=== PATIENT | female | born 1975 | race Caucasian/White ===

== ENCOUNTER 2016-03-11 01:29 | Inpatient (IN) | payer BC, OTHER ==
[2016-03-11] VITALS (7 sets, daily range): BP systolic 122–153; BP diastolic 68–91
[~2016-03-11] VITALS: Ht 167.6 cm; Wt 116.8 kg
--- NOTE | ~2016-03-11 | CON ---
[place], [place] REPORT OF CONSULTATION [id number] UNIT #: [id number] ROOM: 409 DOCTOR: LORI JAMES ED.D (IRMA) BIRTHDATE: [birth year] DOS: 03/11/2016 HISTORY OF PRESENT ILLNESS: Matthew Younger is a 40-year-old female referred by the hospitalist for an evaluation following a suicide attempt. At the present time, she is on the 4th floor at [facility]. She states she is and has two children. She is presently an employee at [employer] where although she is only working part at this time. Her family physician is Dr. Ivey. PAST MEDICAL HISTORY: Her medical history is pertinent for polycystic ovarian syndrome and depression. MEDICATIONS: Her medications include Vistaril, Elavil, Belbuca, hydroxyzine, Elmiron, Pyridium, Detrol, Wellbutrin and Cymbalta. She recently discontinued use of her Cymbalta without telling her nurse practitioner. This patient denies any substance abuse issues whatsoever. She was weak and fairly alert; however, she was somewhat tired due to the fact she had overdosed on medications. She does follow with Dr. Boland who is a psychologist and also with Dr. Michell Khan who is a nurse practitioner for [facility] psychiatrist. She indicates that this is the first time she has attempted suicide, but she has been depressed because of her multiple medical problems. She was unable to convincingly tell me that she was not suicidal at this time, so, I will, therefore, see her tomorrow and reassess her suicidal ideation. DIAGNOSIS: AXIS I: Major depressive disorder -- recurrent. RECOMMENDATIONS: 1. I will reevaluate this patient tomorrow to determine whether or not she has any suicidal ideation or plan. 2. In my opinion, staff member should be with the patient to prevent any further self-harm. Thank you very much for this consult. LORI JAMES ED.D CM:CONSTR:REPORT OF CONSULTATION 1506 03/12/16 1431 interface
--- NOTE | ~2016-03-11 | PR ---
[place], [place] PROGRESS NOTE NAME: MATTHEW WILD [facility] #: [id number] UNIT #: [id number] ROOM: 409 DOCTOR: JACOB PEREZ,LORI RICH) BIRTHDATE: [birth year] DOS: 03/12/2016 SUBJECTIVE: At the present time, this patient adamantly denies any suicidal ideation or plan. She states she made a terrible mistake by overdosing on medications and will never do it again. This is the first time she has ever attempted to commit suicide. She states she will continue to follow with [facility] for psychotherapy along with pharmacotherapy. This patient may be discharged home when medically stable provided she continues to deny any suicidal ideation or plan. DIAGNOSIS: Major depressive disorder, recurrent. LORI JAMES ED.D CM:SUSHIL [id number] LORI JAMES ED.D (BOB) 03/13/16219 interface
[~2016-03-11 01:29] MED LIST: ACETAMINOPHEN &1 TA1 PO; AMITRIPTYLINE50 MG PO; BELBUCA150 MCG BC; DETROL LA4 MG PO; DIAZEPAM5 MG PO; ELMIRON100 MG PO; ESTRADIOL2 MG PO; HYDROXYZINE PAM50 MG PO; LYRICA50 M1 PO; MACROBID100 M1 PO; PYRIDIUM200 M1 PO; VESICARE10 MG PO; WELLBUTRIN SR150 MG PO
[2016-03-11 01:58] LABS: BASO # 0.1 10*3/uL (0.0-0.1); BASO % 1.2 % (0.0-1.0); EOS # 0.1 10*3/uL (0.0-0.4); EOS % 1.8 % (1.0-4.0); HEMATOCRIT 40.9 % (37.0-47.0); LYMPH # 2.2 10*3/uL (1.3-4.4); MEAN CELL VOLUME 91.1 fl (81.0-99.0); MEAN CORPUSCULAR HGB CONC 31.8 g/dl (33.0-37.0); MEAN PLATELET VOLUME 9.3 fl (9.6-12.3); MONO # 0.5 10*3/uL (0.1-1.0); MONO % 7.1 % (3.0-9.0); NEUT # 3.8 10*3/uL (2.3-7.9); NEUT % 56.7 % (47.0-73.0); PLATELET COUNT AUTOMATED 250 10*3/uL (130-400); RED BLOOD COUNT 4.49 10*6/uL (4.10-5.10); WHITE BLOOD COUNT 6.6 10*3/uL (4.8-10.8)
[2016-03-11] MEDS ORDERED: LYRICA50 M1 PO (02:08)
[2016-03-11] MEDS ORDERED: URIBEL CAPSULE1 EACH PO (02:10)
[2016-03-11] MEDS ORDERED: TOPIRAMATE100 M1 PO (02:11)
[2016-03-11 02:12] LABS: BUN 16 mg/dl (7-24); CARBON DIOXIDE 25 mmol/L (21-32); CHLORIDE 110 mmol/L (98-107); EST GLOM FILT AFRICAN AMERICAN > 60 ml/min; GLUCOSE 83 mg/dL (65-99); POTASSIUM 3.4 mmol/L (3.5-5.1); SODIUM 145 mmol/L (136-145)
[2016-03-11] MEDS ORDERED: CYMBALTA30 MG PO (02:13)
[2016-03-11] MEDS ORDERED: FLUCONAZOLE150 MG PO (02:20)
[2016-03-11] MEDS ORDERED: NITROFURANTOIN100 M9 PO (02:20)
[2016-03-11 06:23] LABS: HEMOGLOBIN A1c 5.4 % (4.8-5.6)
[2016-03-11 06:40] LABS: ALBUMIN 3.1 gm/dl (3.1-4.5); ALKALINE PHOSPHATASE 61 U/L (45-117); BILIRUBIN, TOTAL 0.2 mg/dl (0.2-1.0); BUN 15 mg/dl (7-24); CARBON DIOXIDE 23 mmol/L (21-32); CHLORIDE 112 mmol/L (98-107); EST GLOM FILT AFRICAN AMERICAN > 60 ml/min; GLUCOSE 96 mg/dL (65-99); POTASSIUM 3.6 mmol/L (3.5-5.1); SGOT/AST 10 IU/L (3-35); SGPT/ALT 22 U/L (12-78); SODIUM 145 mmol/L (136-145); TOTAL PROTEIN 6.2 gm/dL (6.4-8.2)
[2016-03-11 06:41] LABS: MAGNESIUM 2.2 mg/dL (1.5-2.1); THYROID STIM HORMONE (HS) 1.59 uIU/ml (0.358-4.75)
[2016-03-11 08:27] LABS: FOLIC ACID 5.37 ng/mL (>5.38)
[2016-03-11 15:11] LABS: BILIRUBIN NEGATIVE (NEGATIVE); BLOOD NEGATIVE (NEGATIVE); CLARITY CLEAR (CLEAR); COLOR YELLOW (YELLOW); GLUCOSE NEGATIVE (NEGATIVE); KETONE NEGATIVE (NEGATIVE); LEUKO ESTERASE TRACE (NEGATIVE); NITRITE NEGATIVE (NEGATIVE); PROTEIN NEGATIVE (NEGATIVE); SPECIFIC GRAVITY 1.025 (1.005-1.030); UROBILINOGEN 0.2 E.U./dl (0.2-1.0)
[2016-03-11 15:28] LABS: BACTERIA 1+; EPITHELIAL CELLS 25-30; RBC 0-2 rbc/hpf (0-2); URINE REFLEX COMMENT YES (NO)
[2016-03-11 15:30] LABS: URINE AMPHETAMINES < 1000 (1000ng/ml); URINE BARBITURATES < 200 (200ng/ml); URINE COCAINE < 300 (300ng/ml)
[2016-03-12] VITALS: BP 130/69
[2016-03-12 04:00] VITALS: BP 123/74
[2016-03-12 07:33] LABS: BASO % 0.5 % (0.0-1.0); EOS % 0.5 % (1.0-4.0); HEMATOCRIT 39.5 % (37.0-47.0); HEMOGLOBIN 12.2 g/dl (12.0-16.0); LYMPH # 1.3 10*3/uL (1.3-4.4); LYMPH % 16.6 % (27.0-41.0); MEAN CELL VOLUME 91.6 fl (81.0-99.0); MEAN CORPUSCULAR HGB 28.3 pg (27.0-31.0); MEAN CORPUSCULAR HGB CONC 30.9 g/dl (33.0-37.0); MEAN PLATELET VOLUME 9.5 fl (9.6-12.3); MONO # 0.4 10*3/uL (0.1-1.0); MONO % 5.6 % (3.0-9.0); NEUT # 5.8 10*3/uL (2.3-7.9); NEUT % 76.4 % (47.0-73.0); PLATELET COUNT AUTOMATED 243 10*3/uL (130-400); RED BLOOD COUNT 4.31 10*6/uL (4.10-5.10); RED CELL DISTRI WIDTH 12.9 % (0-14.5); WHITE BLOOD COUNT 7.5 10*3/uL (4.8-10.8)
[2016-03-12 07:53] VITALS: BP 109/65
[2016-03-12 08:17] LABS: ALBUMIN 2.8 gm/dl (3.1-4.5); ALKALINE PHOSPHATASE 59 U/L (45-117); BILIRUBIN, TOTAL 0.3 mg/dl (0.2-1.0); CARBON DIOXIDE 25 mmol/L (21-32); CHLORIDE 109 mmol/L (98-107); EST GLOM FILT AFRICAN AMERICAN > 60 ml/min; GLUCOSE 100 mg/dL (65-99); POTASSIUM 3.5 mmol/L (3.5-5.1); SGOT/AST 12 IU/L (3-35); SGPT/ALT 19 U/L (12-78); SODIUM 142 mmol/L (136-145)
[2016-03-12 08:21] LABS: BUN 5 mg/dl (7-24)
[2016-03-12 12:00] VITALS: BP 123/76
[2016-03-12 16:00] VITALS: BP 113/55
[2016-03-12 20:00] VITALS: BP 117/57
[2016-03-13] VITALS: BP 107/63
[2016-03-13 08:00] VITALS: BP 119/68
[2016-03-13 10:58] LABS: BILIRUBIN NEGATIVE (NEGATIVE); BLOOD NEGATIVE (NEGATIVE); CLARITY CLEAR (CLEAR); COLOR YELLOW (YELLOW); GLUCOSE TRACE (NEGATIVE); KETONE TRACE (NEGATIVE); LEUKO ESTERASE TRACE (NEGATIVE); NITRITE POSITIVE (NEGATIVE); PROTEIN NEGATIVE (NEGATIVE); SPECIFIC GRAVITY <= 1.005 (1.005-1.030)
[2016-03-13 11:13] LABS: BACTERIA 1+
[2016-03-13 11:14] LABS: URINE REFLEX COMMENT YES (NO)
[2016-03-13 12:00] VITALS: BP 117/70
[2016-03-13 16:00] VITALS: BP 123/70
[2016-03-13 20:00] VITALS: BP 127/76
[2016-03-14] VITALS: BP 123/72
[2016-03-14 06:04] LABS: BUN 6 mg/dl (7-24); CARBON DIOXIDE 27 mmol/L (21-32); CHLORIDE 102 mmol/L (98-107); EST GLOM FILT AFRICAN AMERICAN > 60 ml/min; GLUCOSE 100 mg/dL (65-99); POTASSIUM 3.9 mmol/L (3.5-5.1); SODIUM 140 mmol/L (136-145)
[2016-03-14 06:05] LABS: BASO # 0.1 10*3/uL (0.0-0.1); BASO % 0.6 % (0.0-1.0); EOS # 0.1 10*3/uL (0.0-0.4); EOS % 0.7 % (1.0-4.0); HEMATOCRIT 41.3 % (37.0-47.0); HEMOGLOBIN 13.1 g/dl (12.0-16.0); LYMPH # 1.4 10*3/uL (1.3-4.4); LYMPH % 16.6 % (27.0-41.0); MEAN CELL VOLUME 90.2 fl (81.0-99.0); MEAN CORPUSCULAR HGB 28.6 pg (27.0-31.0); MEAN CORPUSCULAR HGB CONC 31.7 g/dl (33.0-37.0); MEAN PLATELET VOLUME 9.6 fl (9.6-12.3); MONO # 0.6 10*3/uL (0.1-1.0); MONO % 7.6 % (3.0-9.0); NEUT # 6.1 10*3/uL (2.3-7.9); NEUT % 74.1 % (47.0-73.0); PLATELET COUNT AUTOMATED 245 10*3/uL (130-400); RED BLOOD COUNT 4.58 10*6/uL (4.10-5.10); RED CELL DISTRI WIDTH 12.6 % (0-14.5); WHITE BLOOD COUNT 8.2 10*3/uL (4.8-10.8)
[2016-03-14 08:00] VITALS: BP 132/69
[2016-03-14 12:00] VITALS: BP 126/79
[2016-03-14 16:00] VITALS: BP 129/74
[2016-03-14 20:00] VITALS: BP 126/72
[2016-03-15] VITALS: BP 112/72
[2016-03-15 08:00] VITALS: BP 122/86
[2016-03-15] MEDS ORDERED: CLEOCIN HCL300 MG PO (11:48)
[2016-03-15 12:00] VITALS: BP 132/69
== END 2016-03-15 14:29 | disposition home or self-care (01) | DRG 917 ==
LOC: ED 01:29 → 4E 02:01 → ICCU 02:01 → EDHOLD 02:01 → ICCU 02:09 → 4E 14:25
PROVIDERS: Emergency Medicine Emergency Medical Services; Hospitalist; Internal Medicine; Internal Medicine Hospice and Palliative Medicine
DX: T42.6X2A Poisoning by other antiepileptic and sedative-hypnotic drugs, intentional self-harm, initial encounter (principal); J69.0 Pneumonitis due to inhalation of food and vomit; F33.9 Major depressive disorder, recurrent, unspecified; N39.0 Urinary tract infection, site not specified; Z68.41 Body mass index [BMI] 40.0-44.9, adult; T43.292A Poisoning by other antidepressants, intentional self-harm, initial encounter; T43.212A Poisoning by selective serotonin and norepinephrine reuptake inhibitors, intentional self-harm, initial encounter; E28.2 Polycystic ovarian syndrome; E87.6 Hypokalemia; G89.29 Other chronic pain; F41.9 Anxiety disorder, unspecified; E66.01 Morbid (severe) obesity due to excess calories; Y92.89 Other specified places as the place of occurrence of the external cause; Z98.51 Tubal ligation status; Z98.890 Other specified postprocedural states; Z81.8 Family history of other mental and behavioral disorders; Z81.1 Family history of alcohol abuse and dependence; Z82.0 Family history of epilepsy and other diseases of the nervous system

== ENCOUNTER 2017-07-17 21:10 | Inpatient (IN) | payer OTHER ==
[~2017-07-17] VITALS: Ht 167.6 cm; Wt 125.3 kg
[2017-07-17 21:10] VITALS: BP 124/86
[~2017-07-17 21:10] MED LIST changes: +CLEOCIN HCL300 MG PO; +CYMBALTA30 MG PO; +FLUCONAZOLE150 MG PO; +NITROFURANTOIN100 M9 PO; +TOPIRAMATE100 M1 PO; +URIBEL CAPSULE1 EACH PO
[2017-07-17 21:59] VITALS: BP 112/61
[2017-07-17 22:00] LABS: BASO # 0.1 10*3/uL (0.0-0.1); BASO % 0.6 % (0.0-1.0); EOS # 0.1 10*3/uL (0.0-0.4); EOS % 1.1 % (1.0-4.0); HEMATOCRIT 42.1 % (37.0-47.0); HEMOGLOBIN 13.6 g/dl (12.0-16.0); LYMPH % 16.5 % (27.0-41.0); MEAN CELL VOLUME 87.2 fl (81.0-99.0); MEAN CORPUSCULAR HGB 28.2 pg (27.0-31.0); MEAN CORPUSCULAR HGB CONC 32.3 g/dl (33.0-37.0); MEAN PLATELET VOLUME 9.3 fl (9.6-12.3); MONO # 0.7 10*3/uL (0.1-1.0); MONO % 5.8 % (3.0-9.0); NEUT % 75.7 % (47.0-73.0); PLATELET COUNT AUTOMATED 295 10*3/uL (130-400); RED BLOOD COUNT 4.83 10*6/uL (4.10-5.10); RED CELL DISTRI WIDTH 13.6 % (0-14.5); WHITE BLOOD COUNT 11.9 10*3/uL (4.8-10.8)
[2017-07-17 22:05] LABS: BILIRUBIN NEGATIVE (NEGATIVE); BLOOD NEGATIVE (NEGATIVE); CLARITY SL CLOUDY (CLEAR); COLOR YELLOW (YELLOW); GLUCOSE NEGATIVE (NEGATIVE); KETONE NEGATIVE (NEGATIVE); LEUKO ESTERASE NEGATIVE (NEGATIVE); NITRITE NEGATIVE (NEGATIVE); PH 5.5 (5.0-9.0); SPECIFIC GRAVITY 1.025 (1.005-1.030); UROBILINOGEN 0.2 E.U./dl (0.2-1.0)
[2017-07-17 22:10] LABS: BACTERIA 2+
[2017-07-17 22:13] LABS: URINE AMPHETAMINES > 1000 (1000ng/ml); URINE BARBITURATES < 200 (200ng/ml); URINE BENZODIAZEPINES > 200 (200ng/ml); URINE CANNABINOIDS (THC) < 50 (50ng/ml); URINE COCAINE < 300 (300ng/ml); URINE METHADONE < 300 (300ng/ml); URINE OPIATES < 300 (300ng/ml)
[2017-07-17 22:14] LABS: ALBUMIN 3.4 gm/dl (3.1-4.5); ALKALINE PHOSPHATASE 89 U/L (45-117); BUN 9 mg/dl (7-24); CHLORIDE 103 mmol/L (98-107); CREATININE 0.75 mg/dL (0.55-1.02); POTASSIUM 3.9 mmol/L (3.5-5.1); SGOT/AST 18 IU/L (3-35); SGPT/ALT 19 U/L (12-78); SODIUM 138 mmol/L (136-145); TOTAL PROTEIN 7.3 gm/dL (6.4-8.2)
[2017-07-17 22:14] LABS: URINE PHENCYCLIDINE < 25 (25ng/ml)
[2017-07-17 22:15] LABS: ACETAMINOPHEN (TYLENOL) < 2.0 ug/ml (10-30); ETHYL ALCOHOL < 3.0 mg/dl (<3)
[2017-07-17 22:52] VITALS: BP 113/57
[2017-07-17 23:13] VITALS: BP 96/48
[2017-07-17 23:42] VITALS: BP 102/51
[2017-07-17 23:55] VITALS: BP 80/40; BP 93/52
[2017-07-18] VITALS: BP 93/52
[2017-07-18] MEDS ORDERED: TEMAZEPAM30 MG PO (00:07)
[2017-07-18] MEDS ORDERED: BUSPIRONE HCL10 MG PO (00:07)
[2017-07-18] MEDS ORDERED: AMPHETAMINE SAL15 M1 PO (00:07)
[2017-07-18] MEDS ORDERED: SERTRALINE HYD100 MG PO (00:08)
[2017-07-18] MEDS ORDERED: Lopressor25 MG PO (00:08)
[2017-07-18] MEDS ORDERED: VITAMIN D350000 UNIT PO (00:09)
[2017-07-18] MEDS ORDERED: VRAYLAR6 MG PO (00:12)
[2017-07-18] MEDS ORDERED: VRAYLAR1.5 MG PO (00:13)
[2017-07-18 04:00] VITALS: BP 101/56
[2017-07-18 06:25] LABS: BASO # 0.1 10*3/uL (0.0-0.1); BASO % 0.5 % (0.0-1.0); EOS # 0.2 10*3/uL (0.0-0.4); EOS % 1.9 % (1.0-4.0); HEMATOCRIT 38.3 % (37.0-47.0); HEMOGLOBIN 11.9 g/dl (12.0-16.0); LYMPH # 2.9 10*3/uL (1.3-4.4); LYMPH % 26.6 % (27.0-41.0); MEAN CELL VOLUME 89.1 fl (81.0-99.0); MEAN CORPUSCULAR HGB 27.7 pg (27.0-31.0); MEAN CORPUSCULAR HGB CONC 31.1 g/dl (33.0-37.0); MEAN PLATELET VOLUME 9.2 fl (9.6-12.3); MONO # 0.7 10*3/uL (0.1-1.0); NEUT # 7.1 10*3/uL (2.3-7.9); NEUT % 64.6 % (47.0-73.0); PLATELET COUNT AUTOMATED 266 10*3/uL (130-400); RED CELL DISTRI WIDTH 13.9 % (0-14.5)
[2017-07-18 06:39] LABS: ALBUMIN 2.7 gm/dl (3.1-4.5); ALKALINE PHOSPHATASE 77 U/L (45-117); BUN 10 mg/dl (7-24); CHLORIDE 104 mmol/L (98-107); CHOLESTEROL 216 mg/dL (<200); CREATININE 0.73 mg/dL (0.55-1.02); FREE T4 0.92 ng/dl (0.76-1.46); HDL CHOLESTEROL 74 mg/dl (40-60); LDL CHOLESTEROL 126 mg/dL (9-159); PHOSPHOROUS 3.4 mg/dL (2.5-4.9); POTASSIUM 3.6 mmol/L (3.5-5.1); SGOT/AST 11 IU/L (3-35); SGPT/ALT 14 U/L (12-78); SODIUM 140 mmol/L (136-145); TOTAL PROTEIN 6.3 gm/dL (6.4-8.2); TRIGLYCERIDES 81 mg/dl (<150); VLDL CHOLESTEROL 16 mg/dL (6-40)
[2017-07-18 06:59] LABS: ACT PARTIAL THROMBO TIME 25.3 SECONDS (20.8-31.5); INTERNATIONAL NORM RATIO 0.9 (2.0-3.5)
[2017-07-18 07:15] LABS: VITAMIN D, 25-HYDROXY 14.7 ng/mL (30-100)
[2017-07-18 08:00] VITALS: BP 110/54
[2017-07-18 12:00] VITALS: BP 106/46
[2017-07-18 16:00] VITALS: BP 125/59
[2017-07-18 20:00] VITALS: BP 98/42
== END 2017-07-18 20:12 | disposition home health service (06) | DRG 918 ==
LOC: ED 21:10 → EDHOLD 23:09 → ICCU 23:32
PROVIDERS: Emergency Medicine; Internal Medicine
DX: T50.902A Poisoning by unspecified drugs, medicaments and biological substances, intentional self-harm, initial encounter (principal); E66.01 Morbid (severe) obesity due to excess calories; R45.851 Suicidal ideations; F32.9 Major depressive disorder, single episode, unspecified; F41.9 Anxiety disorder, unspecified; F13.10 Sedative, hypnotic or anxiolytic abuse, uncomplicated; R82.71 Bacteriuria; R73.9 Hyperglycemia, unspecified; D72.829 Elevated white blood cell count, unspecified; E28.2 Polycystic ovarian syndrome; Z68.41 Body mass index [BMI] 40.0-44.9, adult; Y92.89 Other specified places as the place of occurrence of the external cause; Z87.01 Personal history of pneumonia (recurrent); Z87.440 Personal history of urinary (tract) infections; Z98.51 Tubal ligation status; Z79.899 Other long term (current) drug therapy

== ENCOUNTER → 2017-09-17 | Outpatient (CLI) | payer OTHER ==
[~2017-09-17] MED LIST changes: +AMPHETAMINE SAL15 M1 PO; +BUSPIRONE HCL10 MG PO; +Lopressor25 MG PO; +SERTRALINE HYD100 MG PO; +TEMAZEPAM30 MG PO; +VITAMIN D350000 UNIT PO; +VRAYLAR1.5 MG PO; +VRAYLAR6 MG PO
== END | disposition home or self-care (01) ==
LOC: LAB 13:54
DX: F32.2 Major depressive disorder, single episode, severe without psychotic features (principal)

== ENCOUNTER 2019-10-14 23:32 | Inpatient (IN) | payer MEDICARE, MEDICAID ==
[~2019-10-14] VITALS: Ht 167.6 cm; Wt 140.4 kg
[2019-10-14 23:37] VITALS: BP 127/71
[2019-10-15] VITALS (7 sets, daily range): BP systolic 112–137; BP diastolic 59–85
[2019-10-15 00:10] LABS: BASO # 0.1 10*3/uL (0.0-0.1); BASO % 0.4 % (0.0-1.0); EOS # 0.1 10*3/uL (0.0-0.4); EOS % 0.5 % (1.0-4.0); HEMATOCRIT 42.7 % (37.0-47.0); LYMPH # 1.4 10*3/uL (1.3-4.4); LYMPH % 11.7 % (27.0-41.0); MEAN CELL VOLUME 90.5 fl (81.0-99.0); MEAN CORPUSCULAR HGB CONC 30.9 g/dl (33.0-37.0); MEAN PLATELET VOLUME 9.1 fl (9.6-12.3); MONO # 0.7 10*3/uL (0.1-1.0); NEUT # 9.5 10*3/uL (2.3-7.9); NEUT % 81.3 % (47.0-73.0); PLATELET COUNT AUTOMATED 245 10*3/uL (130-400); RED BLOOD COUNT 4.72 10*6/uL (4.10-5.10); WHITE BLOOD COUNT 11.7 10*3/uL (4.8-10.8)
[2019-10-15 00:22] LABS: ACT PARTIAL THROMBO TIME 25.5 SECONDS (20.0-32.1); INTERNATIONAL NORM RATIO 0.9 (2.0-3.5)
[2019-10-15 00:27] LABS: ACETAMINOPHEN (TYLENOL) < 5.0 ug/ml (10-30); ALBUMIN 2.9 gm/dl (3.1-4.5); ALKALINE PHOSPHATASE 72 U/L (45-117); BUN 9 mg/dl (7-24); CHLORIDE 101 mmol/L (98-107); CREATININE 0.85 mg/dL (0.55-1.02); ETHYL ALCOHOL < 3.0 mg/dl (<3); POTASSIUM 3.5 mmol/L (3.5-5.1); SGOT/AST 8 IU/L (3-35); SGPT/ALT 12 U/L (12-78); SODIUM 135 mmol/L (136-145); TOTAL PROTEIN 7.1 gm/dL (6.4-8.2); TROPONIN I < 0.015 ng/ml (<0.045)
[2019-10-15 00:44] LABS: URINE AMPHETAMINES > 1000 (1000ng/ml); URINE BARBITURATES < 200 (200ng/ml); URINE BENZODIAZEPINES < 200 (200ng/ml); URINE CANNABINOIDS (THC) < 50 (50ng/ml); URINE COCAINE < 300 (300ng/ml); URINE METHADONE < 300 (300ng/ml); URINE OPIATES < 300 (300ng/ml); URINE PHENCYCLIDINE < 25 (25ng/ml)
[2019-10-15 00:46] LABS: BILIRUBIN NEGATIVE (NEGATIVE); CLARITY CLEAR (CLEAR); COLOR YELLOW (YELLOW); GLUCOSE NEGATIVE (NEGATIVE); KETONE NEGATIVE (NEGATIVE)
[2019-10-15 00:47] LABS: BLOOD 1+ (NEGATIVE); LEUKO ESTERASE 2+ (NEGATIVE); NITRITE NEGATIVE (NEGATIVE); SPECIFIC GRAVITY 1.015 (1.005-1.030); UROBILINOGEN 0.2 E.U./dl (0.2-1.0)
[2019-10-15 00:56] LABS: BACTERIA 1+; EPITHELIAL CELLS 21-30; WBC 16-20 wbc/hpf (0-5)
[2019-10-15] MEDS ORDERED: TRAZODONE50 MG PO (01:40)
[2019-10-15 06:26] LABS: BASO # 0.1 10*3/uL (0.0-0.1); BASO % 0.6 % (0.0-1.0); EOS # 0.1 10*3/uL (0.0-0.4); EOS % 0.9 % (1.0-4.0); HEMATOCRIT 39.9 % (37.0-47.0); LYMPH # 1.9 10*3/uL (1.3-4.4); LYMPH % 21.3 % (27.0-41.0); MEAN CELL VOLUME 89.9 fl (81.0-99.0); MEAN CORPUSCULAR HGB 27.9 pg (27.0-31.0); MEAN CORPUSCULAR HGB CONC 31.1 g/dl (33.0-37.0); MEAN PLATELET VOLUME 8.7 fl (9.6-12.3); MONO # 0.6 10*3/uL (0.1-1.0); MONO % 6.4 % (3.0-9.0); NEUT # 6.2 10*3/uL (2.3-7.9); NEUT % 70.6 % (47.0-73.0); PLATELET COUNT AUTOMATED 218 10*3/uL (130-400); RED BLOOD COUNT 4.44 10*6/uL (4.10-5.10); RED CELL DISTRI WIDTH 13.1 % (0-14.5); WHITE BLOOD COUNT 8.8 10*3/uL (4.8-10.8)
[2019-10-15 06:53] LABS: ALBUMIN 2.7 gm/dl (3.1-4.5); ALKALINE PHOSPHATASE 61 U/L (45-117); BUN 7 mg/dl (7-24); CHLORIDE 106 mmol/L (98-107); CHOLESTEROL 198 mg/dL (<200); CREATININE 0.82 mg/dL (0.55-1.02); HDL CHOLESTEROL 65 mg/dl (40-60); LDL CHOLESTEROL 104 mg/dL (9-159); POTASSIUM 3.8 mmol/L (3.5-5.1); SGOT/AST 9 IU/L (3-35); SGPT/ALT 12 U/L (12-78); SODIUM 139 mmol/L (136-145); TOTAL PROTEIN 6.4 gm/dL (6.4-8.2); TRIGLYCERIDES 145 mg/dl (<150); VLDL CHOLESTEROL 29 mg/dL (6-40)
[2019-10-16] VITALS: BP 126/81
[2019-10-16 04:00] VITALS: BP 121/70
[2019-10-16 08:00] VITALS: BP 109/65
[2019-10-16 12:00] VITALS: BP 109/65
== END 2019-10-16 16:45 | disposition home health service (06) | DRG 918 ==
LOC: ED 23:32 → EDHOLD 10-15 00:45 → ICCU 10-15 00:45
PROVIDERS: Emergency Medicine Emergency Medical Services; Student in an Organized Health Care Education/Training Program; ADMIT Family Medicine
DX: T43.592A Poisoning by other antipsychotics and neuroleptics, intentional self-harm, initial encounter (principal); R45.851 Suicidal ideations; E87.1 Hypo-osmolality and hyponatremia; E44.0 Moderate protein-calorie malnutrition; F33.2 Major depressive disorder, recurrent severe without psychotic features; Z68.42 Body mass index [BMI] 45.0-49.9, adult; T43.292A Poisoning by other antidepressants, intentional self-harm, initial encounter; F41.9 Anxiety disorder, unspecified; R73.9 Hyperglycemia, unspecified; M62.89 Other specified disorders of muscle; R00.0 Tachycardia, unspecified; F90.9 Attention-deficit hyperactivity disorder, unspecified type; D72.825 Bandemia; E28.2 Polycystic ovarian syndrome; E66.01 Morbid (severe) obesity due to excess calories; Z91.5 Personal history of self-harm; Z98.51 Tubal ligation status; Z90.710 Acquired absence of both cervix and uterus; Z81.8 Family history of other mental and behavioral disorders; Z81.1 Family history of alcohol abuse and dependence; Z82.0 Family history of epilepsy and other diseases of the nervous system; Z79.899 Other long term (current) drug therapy; Y92.89 Other specified places as the place of occurrence of the external cause

== ENCOUNTER 2020-10-30 03:11 | Emergency (ER) | payer OTHER ==
[~2020-10-30] VITALS: Ht 167.6 cm; Wt 148.8 kg
[~2020-10-30 03:11] MED LIST changes: +TRAZODONE50 MG PO
[2020-10-30 03:36] LABS: BASO # 0.1 10*3/uL (0.0-0.1); BASO % 0.5 % (0.0-1.0); EOS # 0.1 10*3/uL (0.0-0.4); EOS % 0.8 % (1.0-4.0); HEMATOCRIT 44.8 % (37.0-47.0); LYMPH # 1.7 10*3/uL (1.3-4.4); LYMPH % 14.3 % (27.0-41.0); MEAN CORPUSCULAR HGB 26.4 pg (27.0-31.0); MEAN CORPUSCULAR HGB CONC 30.4 g/dl (33.0-37.0); MEAN PLATELET VOLUME 9.4 fl (9.6-12.3); MONO # 0.7 10*3/uL (0.1-1.0); MONO % 5.9 % (3.0-9.0); NEUT # 9.4 10*3/uL (2.3-7.9); NEUT % 78.2 % (47.0-73.0); PLATELET COUNT AUTOMATED 292 10*3/uL (130-400); RED BLOOD COUNT 5.15 10*6/uL (4.10-5.10); RED CELL DISTRI WIDTH 13.8 % (0-14.5); WHITE BLOOD COUNT 12.1 10*3/uL (4.8-10.8)
[2020-10-30 04:06] LABS: ALBUMIN 3.4 gm/dl (3.1-4.5); ALKALINE PHOSPHATASE 91 U/L (45-117); BUN 10 mg/dl (7-24); CHLORIDE 103 mmol/L (98-107); CREATININE 1.05 mg/dL (0.55-1.02); POTASSIUM 4.2 mmol/L (3.5-5.1); SGOT/AST 14 IU/L (3-35); SGPT/ALT 26 U/L (12-78); SODIUM 135 mmol/L (136-145); TOTAL PROTEIN 7.2 gm/dL (6.4-8.2)
[2020-10-30 04:07] LABS: ACETAMINOPHEN (TYLENOL) < 5.0 ug/ml (10-30); ETHYL ALCOHOL < 3.0 mg/dl (<3)
[2020-10-30 05:30] LABS: BILIRUBIN Negative (Negative); BLOOD Negative (Negative); CLARITY Clear (Clear); COLOR Yellow (Yellow); GLUCOSE Negative (Negative); KETONE Negative (Negative); LEUKO ESTERASE Negative (Negative); NITRITE Negative (Negative)
[2020-10-30 05:39] LABS: URINE AMPHETAMINES < 1000 (1000ng/ml); URINE BARBITURATES < 200 (200ng/ml); URINE BENZODIAZEPINES > 200 (200ng/ml); URINE CANNABINOIDS (THC) < 50 (50ng/ml); URINE COCAINE < 300 (300ng/ml); URINE METHADONE < 300 (300ng/ml); URINE OPIATES < 300 (300ng/ml)
[2020-10-30 05:44] LABS: RBC 0-2 rbc/hpf (0-2); WBC 0-2 wbc/hpf (0-5)
[2020-10-30 05:45] LABS: BACTERIA TRACE
[2020-10-30 05:48] LABS: URINE PHENCYCLIDINE < 25 (25ng/ml)
[2020-10-30 17:38] LABS: ABG BASE EXCESS 3.3 mmol/L (-2.0-2.0); ARTERIAL BLOOD GAS PH 7.432 (7.35-7.45); ARTERIAL BLOOD GAS PO2 62.7 (80-90)
== END 2020-10-31 06:35 ==
LOC: ED 03:11
PROVIDERS: Emergency Medicine; Internal Medicine
DX: F43.21 Adjustment disorder with depressed mood (principal); Z20.822 Contact with and (suspected) exposure to COVID-19; D72.829 Elevated white blood cell count, unspecified; N18.31 Chronic kidney disease, stage 3a; Z79.899 Other long term (current) drug therapy

== ENCOUNTER → 2023-03-30 | Outpatient (CLI) | payer OTHER | END | disposition home or self-care (01) | LOC: RAD 08:00 | PROVIDERS: ATTEND Internal Medicine Critical Care Medicine | DX: J98.6 Disorders of diaphragm (principal); R06.83 Snoring; R53.83 Other fatigue; G47.33 Obstructive sleep apnea (adult) (pediatric) ==